=== PATIENT | female | born 1985 | race Caucasian/White ===

== ENCOUNTER 2017-09-03 14:57 | Inpatient (IN) | payer OTHER ==
[2017-09-03] MEDS ORDERED: Lactated Ringer's 1,000 ML IV SCH (15:30)
[2017-09-03 16:13] LABS: BASO % 0.2 % (0.0-2.0); EOS # 0.3 K/uL (0.0-0.7); EOS % 3.6 % (0.0-4.0); HEMOGLOBIN 10.2 g/dL (11.0-16.0); LYMPH # 1.7 K/uL (1.0-4.3); LYMPH % 20.4 % (20.0-40.0); MEAN CELL VOLUME 88.9 fL (81.0-99.0); MEAN CORPUSCULAR HEMOGLOBIN 31.1 pg (27.0-31.0); MONO # 0.5 K/uL (0.0-0.8); MONO % 6.1 % (0.0-10.0); NEUT # 5.8 K/uL (1.8-7.0); NEUT % 69.7 % (50.0-75.0); RBC 3.27 Mil/uL (3.80-5.20); RED CELL DISTRIBUTION WIDTH 12.7 % (11.5-14.5); WHITE BLOOD COUNT 8.4 K/uL (4.8-10.8)
[2017-09-03 16:33] LABS: ALB/GLOB RATIO 1.1 (1.0-2.1); ALBUMIN 3.9 g/dL (3.5-5.0); ALT/SGPT 16 U/L (9-52); AST/SGOT 17 U/L (14-36); BLOOD UREA NITROGEN 6 mg/dL (7-17); CALCIUM 9.3 mg/dl (8.6-10.4); GFR AFRICAN-AMERICAN > 60; GFR NON-AFRICAN AMERICAN > 60
[2017-09-03 16:45] LABS: SQUAMOUS EPITHIAL 1 /hpf (0-5); URINE BACTERIA RARE (<OCC); URINE BILIRUBIN NEGATIVE (NEGATIVE); URINE BLOOD 1+ (NEGATIVE); URINE CLARITY Clear (Clear); URINE COLOR Colorless (YELLOW); URINE GLUCOSE (UA) NORMAL (Normal); URINE LEUKOCYTE ESTERASE NEG Leu/uL (Negative); URINE NITRATE NEGATIVE (NEGATIVE); URINE PROTEIN NEGATIVE (NEGATIVE); URINE UROBILINOGEN NORMAL mg/dL (0.2-1.0)
--- NOTE | 2017-09-03 17:34 | OBADHP ---
Datetime: 09/03/2017 15:57 IP Chief Complaint Other: abdominal pain IP Adm Impression Other: incompteent cervix; inevitable Admit Comment, IP Provider: chief complaint-abdominal pain HPI 31 y/o at 19 wga with c/o abdominal pain course -clomid pregnnacy PMH hypothyroidism, pcos PSH denies OBGYN X Social hx deneis tobacco,alcohol or illicit drug use Exam speculum exam +bulging membranes.cervix 5-6 cm dilated abdomen soft and nontender Extremities no calf tenderness A/P 31 y/o at 19 wga with bulging membranes.incomptenet cervix.inevitable -admit -check labs Pelvic Type - PN: Adequate Extremities - PN: Normal Abdomen - PN: Normal Back - PN: Normal Lungs - PN: Normal Heart - PN: Normal Neurologic - PN: Normal General - PN: Normal Contraction Comments Provider: none IP Hx Assessment: The History has been Reviewed and is Current Vital Signs Provider: Reviewed; Within Normal Limits IP Chief Complaint: Other Dilatation, Provider: 5-6 Genitourinary Exam: Normal DTRs - PN: Normal EGA AdmitDate IP: 19.2 IP Adm Impression: , intrauterine IP Admit Plan: Admit to unit
--- NOTE | 2017-09-03 17:40 | OBPN ---
Datetime: 09/03/2017 17:32 IP Progress Note Comment: patient admitted with inevitable bulging membranes.cervix 5-6 cm discussed with patient about expectant management versus active management reviewed with patient and her about the previable gestational age.Discussed delivery at 19 -20 weeks not compatible with life discussed risk of infection, chorio, sepsis with expectant management discussed need for early cervical length and cerclageand mfm consultation with next patient voices understanding the diagnosis and the benefits and risks of active management versus expectant management patient desires to proceed with expectant management Datetime: 09/03/2017 15:57 Contraction Comments Provider: none Vital Signs Provider: Reviewed; Within Normal Limits Dilatation, Provider: 5-6
[2017-09-03] MEDS ORDERED: Nalbuphine 20 mg/ml Inj (1 ml) IVP ONE (19:56)
[2017-09-03] MEDS ORDERED: Nalbuphine 20 mg/ml Inj (1 ml) ONE (20:04)
[2017-09-03] MEDS ORDERED: Gentamicin 80 mg/2mL Inj. ONE (21:28)
[2017-09-03] MEDS ORDERED: Oxycodone/Acetaminophen 5/325 mg Tab PO PRN (23:53)
[2017-09-04] MEDS ORDERED: Nalbuphine 20 mg/ml Inj (1 ml) IVP ONE (00:31)
--- NOTE | 2017-09-04 07:14 | OBDS ---
DELIVERY PERSONNEL Delivery Doctor: Maximilian Alarcon MD Patient Ambassador: Kelly Wesley RN MATERNAL INFORMATION Delivery Anesthesia: None Medications in Delivery: PITOCIN Estimated Blood Loss (ml): 200 Placenta Cultured: No Maternal Complications: Other Other Maternal Complications: IUP 19 WEEKS INCOMPETANT CERVIX, BULGING MEMBRANES, ADVANCED CERVICAL DILITATION RN Comments: 19 WEEK FETUS Provider Comments: patient delivered the infant in bed.cord clamaped and cut.cytotec po given. place nta sonatneously delivered theerafter. ebl 200cc patient stable LABOR SUMMARY EDC: 01/26/2018 00:00 No. Babies in Womb: 1 Attempted: No Labor Anesthesia: IV Sedation LABOR INFORMATION Reason for Induction: Not Applicable Onset of Labor: 09/03/2017 19:00 Complete Dilatation: 09/03/2017 23:50 Cervical Ripening Agents: Cytotec @ (Annotations: 600MCG GIVEN PO) Group B Beta Strep: Not Done Steroids Given: None Reason Steroids Not Administered: Not Applicable MEMBRANES Membranes Rupture Method: Spontaneous Rupture of Membranes: 09/03/2017 23:50 Length of Rupture (hrs): 2.02 Amniotic Fluid Color: Clear Amniotic Fluid Amount: Small Amniotic Fluid Odor: Normal STAGES OF LABOR Stage 1 hrs: 4 Stage 1 min: 50 Stage 2 hrs: 2 Stage 2 min: 1 Stage 3 hrs: 1 Stage 3 min: 39 Total Time in Labor hrs: 8 Total Time in Labor min: 30 VAGINAL DELIVERY Episiotomy: None Laceration Extension: N/A Laceration Type: None Laceration Repair: Not Applicable Initial Vag Sponge Count: 10 Final Vag Sponge Count: 10 Initial Vag Sharps Count: 0 Final Vag Sharps Count: 0 Sponge Count Correct: Yes; Vaginal Sweep Performed Sharps Count Correct: N/A BABY A INFORMATION Infant Delivery Date/Time: 09/04/2017 01:51 Method of Delivery: Vaginal Born in Route : No : N/A Forceps: N/A Vacuum Extraction: N/A Shoulder Dystocia : No SHOULDER DYSTOCIA BABY A Delivery Date/Time: 09/04/2017 01:51 PRESENTATION/POSITION BABY A Presentation: Breech Cephalic Presentation: N/A Breech Presentation: Double Footling PLACENTA INFORMATION BABY A Placenta Delivery Time : 09/04/2017 03:30 Placenta Method of Delivery: Spontaneous Placenta Status: Delivered INFORMATION BABY A Gestational Age at Delivery: 19.2 Infant Outcome : AB < 20 Weeks
[2017-09-04 18:13] VITALS: BP 116/60; PULSE 81; RESP 20; TEMP 98.5
== END 2017-09-04 13:30 | disposition home or self-care (01) | DRG 779 ==
LOC: C.EROB 14:57 → C.4D 15:18
PROVIDERS: ADMIT Student in an Organized Health Care Education/Training Program; ATTEND Student in an Organized Health Care Education/Training Program
PROC: 10E0XZZ Delivery of Products of Conception, External Approach (ICD-10-PCS; principal; 2017-09-04)
DX: O03.89 Complete or unspecified spontaneous abortion with other complications (principal); O34.32 Maternal care for cervical incompetence, second trimester; Z37.1 Single stillbirth; Z3A.19 19 weeks gestation of pregnancy